=== PATIENT | female | born 1950 | race Caucasian/White ===

== ENCOUNTER 2017-09-13 10:35 | Outpatient (CLI) | payer OTHER ==
[~2017-09-13 10:35] MED LIST: ALTACE5 MG PO; AVALIDE 150-12.1 TA1 PO; CARDIZEM LA300 MG PO; CRESTOR20 MG PO; FOLIC ACID1 MG PO; JANUMET 50-1,1 UDTAB PO; JANUMET XR 50-1 EAC1 PO; LOVAZA1 G PO; PLAVIX75 MG PO; SIMBICORT PO; SINGULAIR10 MG PO; SYNTHROID50 MCG PO
== END 2017-09-13 11:21 | disposition home or self-care (01) ==
LOC: LAB 10:35
DX: Z80.3 Family history of malignant neoplasm of breast (principal); D50.0 Iron deficiency anemia secondary to blood loss (chronic); I74.3 Embolism and thrombosis of arteries of the lower extremities; D51.1 Vitamin B12 deficiency anemia due to selective vitamin B12 malabsorption with proteinuria; I10 Essential (primary) hypertension; E03.8 Other specified hypothyroidism; E08.65 Diabetes mellitus due to underlying condition with hyperglycemia; M15.0 Primary generalized (osteo)arthritis; R97.0 Elevated carcinoembryonic antigen [CEA]; R97.8 Other abnormal tumor markers; C18.9 Malignant neoplasm of colon, unspecified; C50.811 Malignant neoplasm of overlapping sites of right female breast; C56.9 Malignant neoplasm of unspecified ovary; C25.9 Malignant neoplasm of pancreas, unspecified; C22.0 Liver cell carcinoma; E78.4 Other hyperlipidemia

== ENCOUNTER 2018-04-09 11:37 | Outpatient (CLI) | payer OTHER ==
[~2018-04-09 11:37] MED LIST changes: +CELEBREX200MG PO; +DICLOFENAC SOD100 G1 TOP; +METHOCARBAMOL500 MG PO
== END 2018-04-09 11:39 | disposition home or self-care (01) ==
LOC: SONOGRAMA 11:37
DX: M75.32 Calcific tendinitis of left shoulder (principal)

== ENCOUNTER 2018-05-21 14:36 | Outpatient (CLI) | payer OTHER | END 2018-05-21 14:40 | disposition home or self-care (01) | LOC: LAB 14:36 | DX: E78.2 Mixed hyperlipidemia (principal); N39.0 Urinary tract infection, site not specified; D68.8 Other specified coagulation defects ==

== ENCOUNTER 2018-08-14 09:15 | Outpatient (CLI) | payer OTHER | END 2018-08-14 09:16 | disposition home or self-care (01) | LOC: SONOGRAMA 09:15 | DX: M25.512 Pain in left shoulder (principal) ==

== ENCOUNTER → 2020-08-16 08:11 | Outpatient (CLI) | payer OTHER | END | disposition home or self-care (01) | LOC: LAB 08:11 | PROVIDERS: ATTEND Internal Medicine Hematology & Oncology | DX: D50.8 Other iron deficiency anemias (principal); R97.0 Elevated carcinoembryonic antigen [CEA]; R97.8 Other abnormal tumor markers; E55.9 Vitamin D deficiency, unspecified; N83.8 Other noninflammatory disorders of ovary, fallopian tube and broad ligament; R97.1 Elevated cancer antigen 125 [CA 125]; Z80.3 Family history of malignant neoplasm of breast; D51.1 Vitamin B12 deficiency anemia due to selective vitamin B12 malabsorption with proteinuria; D50.0 Iron deficiency anemia secondary to blood loss (chronic); I74.3 Embolism and thrombosis of arteries of the lower extremities; I10 Essential (primary) hypertension; E78.5 Hyperlipidemia, unspecified; E03.8 Other specified hypothyroidism; E08.65 Diabetes mellitus due to underlying condition with hyperglycemia; M15.0 Primary generalized (osteo)arthritis ==

== ENCOUNTER 2023-07-25 07:03 | Day surgery (SDC) | payer OTHER ==
[2023-07-25] MEDS ORDERED: fentaNYL CITRATE 50 MCG/ML AMPUL IV PUSH ONE (12:30)
[2023-07-25] MEDS ORDERED: DIPHENHYDRAMINE HCL 50 MG/ML VIAL 1ML IV ONE (12:30)
[2023-07-25] MEDS ORDERED: MIDAZOLAM HCL 2 MG/2 ML VIAL IV ONE (12:30)
[2023-07-25] MEDS ORDERED: ONDANSETRON HCL 2 MG/ML VIAL IV ONE (12:30)
== END 2023-07-25 14:22 | disposition home or self-care (01) ==
LOC: AMB-ENDOS 07:03
PROVIDERS: ATTEND Colon & Rectal Surgery
DX: K62.0 Anal polyp (principal); K57.30 Diverticulosis of large intestine without perforation or abscess without bleeding; I10 Essential (primary) hypertension; E03.9 Hypothyroidism, unspecified; E11.9 Type 2 diabetes mellitus without complications; K64.8 Other hemorrhoids